=== PATIENT | male | born 1965 | race Caucasian/White ===

== ENCOUNTER 2021-05-07 09:10 | Emergency (ER) | payer OTHER, MEDICAID ==
[~2021-05-07] VITALS: Ht 170.2 cm; Wt 73.0 kg
[2021-05-07 09:13] VITALS: BP 137/82
[2021-05-07] MEDS ORDERED: ONDANSETRON 4MG ODT PO ONE (09:45)
[2021-05-07] MEDS ORDERED: KETOROLAC 60MG/2ML VIAL IM ONE (09:45)
== END 2021-05-07 10:22 | disposition home or self-care (01) ==
LOC: ER 09:23
DX: T65.891A Toxic effect of other specified substances, accidental (unintentional), initial encounter (principal); H11.89 Other specified disorders of conjunctiva; Y92.018 Other place in single-family (private) house as the place of occurrence of the external cause
CPT/HCPCS: 99283; J1885